=== PATIENT | female | born 1935 | race Caucasian/White ===

== ENCOUNTER 2018-08-01 14:50 | Observation (INO) | payer OTHER ==
[2018-08-01] MEDS ORDERED: ALPRAZOLAM 0.25 MG TABLET PO PRN (15:35)
[2018-08-01] MEDS: ALBUTEROL 2.5 MG/3 ML NEB SOL NEB SCH ×2 (16:00→20:25)
[2018-08-01 16:23] VITALS: BMI 26.6
[2018-08-01] MEDS ORDERED: INFLUENZA VACCINE (for 3y+) 0.5 ML DOSE IMVAC ONE (17:00)
[2018-08-01] MEDS: Levofloxacin500mg IV 500 MG/100 ML BAG IV SCH (17:13)
[2018-08-01 20:07] LABS: Urine Appearance CLEAR; Urine Blood NEGATIVE (NEG); Urine Color DK YELLOW; Urine Glucose NEGATIVE (NEG); Urine Protein TRACE (NEG)
[2018-08-01 20:17] LABS: Urine Bilirubin NEGATIVE (NEG); Urine Microscopic Reflex ORDER UMIC
[2018-08-01 20:43] LABS: Urine Bacteria 20-50 /HPF (<20); Urine Culture Reflex Order REFLEXED; Urine Mucus 1+ /HPF (NONE SEEN); Urine RBC <5 /HPF (NONE SEEN)
[2018-08-01 20:44] LABS: Calcium Oxalate Crystals- Ur MODERATE (NONE SEEN)
[2018-08-02] MEDS: ALBUTEROL 2.5 MG/3 ML NEB SOL NEB SCH ×3 (07:40→16:00)
[2018-08-02 09:04] VITALS: O2SAT 97
--- NOTE | 2018-08-02 09:17 | P.CNS ---
Date of Consult: 08/02/18 Chief Complaint: Unable to take a deep breath History of Present Illness: Patient is 82 years of age admitted to the hospital with the possibility of pneumonia he has been enabled to take a deep breath for a few weeks no prior history of cardiopulmonary problems she has never smoked denies any cough fever chills chest pain patient complains of severe heartburns did see a GI doctor stopped taking her PPI as over a month ago denies any lower extremity edema Allergies Sulfa (Sulfonamide Antibiotics) Adverse Reaction (Verified 08/01/18 15:37) Anaphylaxis Home Medications: Amlodipine Besylate 10 mg PO DAILY 08/01/18 Levothyroxine [Synthroid*] 1 tab PO [id number] 08/01/18 clonazePAM [Clonazepam] 1 tab PO BEDTIME 08/01/18 - Past Medical/Surgical History Diabetic: No -: hypertension -: aortic stent 2004 -: R hip surgery 2005 -: R knee surgery 2002 - Family History Father Medical History: Heart disease - Social History Alcohol use: No CD- Drugs: No Caffeine use: Yes Place of Residence: Home Review of Systems 10-point ROS is otherwise unremarkable Physical Examination Temp Pulse Resp BP Pulse Ox 98.9 F 93 H 20 137/77 96 08/02/18 04:00 08/02/18 04:00 08/02/18 04:00 08/02/18 04:00 08/02/18 04:00 General: Alert, Oriented x3 Neck: Supple Respiratory: Clear to auscultation bilaterally Cardiovascular: No edema, Regular rate/rhythm Gastrointestinal: Normal bowel sounds, Soft and benign - Problems (1) Shortness of breath Current Visit: Yes Status: Acute Plan: Patient is 82 years of age admitted with unable to take a deep breath for the past few weeks complains of severe heartburn she was seen by GI specialist opt taking her PPIs no recent labs I have ordered a CBC and Chem 7 patient is to resume her PPI in no clinical evidence of a pneumonia vital signs all stable to be discharged to follow up with me in 2 weeks
[2018-08-02 09:57] LABS: Absolute Lymphocytes (CBC) 1.2 K/uL (0.7-4.9); Absolute Monocytes 1.3 K/uL (0.1-1.3); Absolute Neutrophil 8.6 K/uL (1.8-8.0); Basophils % 0.7 % (0-1.3); Eosinophils % 1.3 % (0-4.4); Hematocrit 31.1 % (36.0-45.0); Lymphocytes % 10.4 % (15.3-44.8); Monocytes % 11.2 % (3.3-12.3); RBC Red Blood Cell Count 3.94 M/uL (3.86-4.86)
[2018-08-02 10:17] LABS: Potassium 3.1 mmol/L (3.5-5.1)
[2018-08-02] MEDS ORDERED: TRAMADOL HCL 50 MG TAB PO ONE (14:21)
[2018-08-02] MEDS: Levofloxacin500mg IV 500 MG/100 ML BAG IV SCH (15:52)
[2018-08-02 17:12] VITALS: BP 119/56; TEMP 99.8
--- NOTE | 2018-08-03 04:31 | HP ---
Date of Admission: 08/01/2018 Chief Complaint: Possible pneumonia. History Of Present Illness: An 82-year-old female was brought to the office the day before admission because of multiple complaints. Outpatient workup including chest x-ray was done. The patient's ch est x-ray was reported possible pneumonia. The patient was admitted for observation. The patient de nied any history of nausea, vomiting, diarrhea or all other systemic symptoms. The patient has been having increased burping and epigastric burning. Past Medical History: The patient is known to have history of hypertension for which she takes medic ations. Family History: The patient has a family history of heart disease. Past Surgical History: Positive for hip surgery, knee surgery, stent placement, for which I do not h ave any information. Allergies: SULFA DRUGS. Review of Systems: No history of fever, chills, rigors. Physical Examination: General: An 82-year-old female, anxious. Vital Signs: Temperature normal. HEENT: Otherwise negative. Neck: Supple. JVD negative. Chest: Few scattered wheezes. Heart: Regular. Abdomen: Soft. Extremities: No edema. Laboratory Studies: 1.White count 48631. 2.Chest x-ray possible left basal pneumonia with effusion. Assessment: 1.Possible pneumonia. 2.Hypertension. 3.History of stent placement over 10 years ago. 4.Status post right hip and right knee surgery. Hospital Course: After admission to the hospital, the patient was given Levaquin. The patient was s een by Dr. Cruz as part of Pulmonary consultation. He did not feel that the patient needed IV an tibiotics. The patient was discharged on oral Levaquin and she is advised to follow. The patient wo jewel have her old medical records reviewed regarding her previous interventions. FARTUN/CLIFF Voice ID: [id number]
== END 2018-08-02 18:06 | disposition home or self-care (01) ==
LOC: 4TH 15:10
PROVIDERS: ADMIT Internal Medicine; ATTEND Internal Medicine
DX: R06.02 Shortness of breath (principal); I10 Essential (primary) hypertension; Z88.2 Allergy status to sulfonamides; Z95.5 Presence of coronary angioplasty implant and graft
CPT/HCPCS: 36415; 80048; 85025; 87040 ×2; 87088; 94640; G0378; G0379; 81003; 81015; 87086; Q2035

== ENCOUNTER 2018-09-16 06:51 | Day surgery (SDC) | payer OTHER ==
[2018-09-12 15:30] LABS: Protime INR 1.6
[2018-09-16] MEDS ORDERED: NA CHLORIDE 0.9% 500 ML ONE (07:20)
[2018-09-16] MEDS ORDERED: MIDAZOLAM HCL 5 MG/5 ML INJ ONE (07:51)
[2018-09-16] MEDS ORDERED: APIXABAN 5 MG TABLET PO ONE (08:00)
--- NOTE | 2018-09-16 08:51 | EKG ---
Test Date: 2018-09-16 Test Time: 08:09:37 Content Analyst: ANASTASIA MEASUREMENT RESULTS: Intervals: Rate: 79 MI: 302 QRSD: 78 QT: 358 QTc: 410 [place]: P: 91 MI: 302 QRS: -40 T: -31 INTERPRETIVE STATEMENTS: Sinus rhythm with 1st degree AV block with premature atrial complexes Left axis deviation Low voltage QRS RSR' or QR pattern in V1 suggests right ventricular conduction delay Inferior infarct, age undetermined Anterolateral infarct, age undetermined Abnormal ECG Compared to ECG 06/20/1996 16:22:00 Atrial premature complex(es) now present First degree AV block now present Left-axis deviation now present Low QRS voltage now present RSR' in V1 or V2 now present Myocardial infarct finding now present Incomplete right bundle-branch block no longer present Electronically Signed On 09-16-18 08:50:50 HUMAN RESOURCES SPECIALIST by Remi Chen
[2018-09-16 09:22] VITALS: TEMP 97.8; O2SAT 96
[2018-09-16 09:50] VITALS: BP 114/78
--- NOTE | 2018-09-16 19:56 | OP ---
Surgeon: Remi Chen MD Additional Attending Physician: Dr. Caballero. Procedure: Direct current cardioversion. Indication: Atrial fibrillation, persistent. Procedure In Detail: The patient had been anticoagulated for more than 3 weeks with Eliquis 5 mg twi ce a day. She was brought to the cardiac general laborer in a fasting state, sedated with Versed 8 mg total was used and it was titrated to an adequate level of sedation. Anterior-posterior paddles were appl ied to the patient's chest. A single shock 200 joules was delivered, synchronized to the QRS complex , this resulted in sinus rhythm. Complications from the procedure none. SARAH/MODFlorence Voice ID: [id number] Report ID: [id number]
== END 2018-09-16 09:40 | disposition home health service (06) ==
LOC: CCL 06:51
PROVIDERS: ATTEND Internal Medicine
DX: I48.1 Persistent atrial fibrillation (principal); I10 Essential (primary) hypertension; E78.2 Mixed hyperlipidemia; I25.10 Atherosclerotic heart disease of native coronary artery without angina pectoris; I71.4 Abdominal aortic aneurysm, without rupture; E03.8 Other specified hypothyroidism; Z79.01 Long term (current) use of anticoagulants; Z79.899 Other long term (current) drug therapy; Z82.49 Family history of ischemic heart disease and other diseases of the circulatory system
CPT/HCPCS: 36415; 85610; 85730; 92960; 93005; J2250